=== PATIENT | female | born 1950 | race Caucasian/White ===

== ENCOUNTER → 2019-07-12 | Outpatient (CLI) | payer OTHER, MEDICAID ==
[~2019-07-12] MED LIST: BYSTOLIC20 MG PO; CALCITRIOL0.5 MCG PO; CIPRO500 MG PO; CIPROFLOXACIN500 M1 PO; FLAGYL500 MG PO; LEVOTHYROXIN0.125 M1 PO; LEVSIN0.125 MG PO; LISINOPRIL10 MG PO; MAGNESIUM OXID400 MG PO; MIRALAX17 GM PO; MOVANTIK25 MG PO; OXYCODONE HCL15 MG PO; OXYCONTIN80 M1 PO; PLAVIX 75 MG TA75 M1 PO; SYNTHROID; TUMS PO; VENTOLIN HFA 1818 GM INH; XANAX 0.5 MG0.5 MG PO; ZOCOR20 MG PO; ZOFRAN4 MG PO
== END ==
LOC: M.ULTRA 07-11 11:30 → M.RAD 11:19 → M.ULTRA 11:19
DX: Z12.31 Encounter for screening mammogram for malignant neoplasm of breast (principal); I65.23 Occlusion and stenosis of bilateral carotid arteries

== ENCOUNTER → 2019-07-24 | Outpatient (CLI) | payer OTHER | LOC: M.CT 09:12 | DX: Z13.6 Encounter for screening for cardiovascular disorders (principal) ==

== ENCOUNTER → 2019-07-24 | Outpatient (CLI) | payer OTHER, MEDICAID | LOC: M.ULTRA 07-17 14:09 → M.RAD 09:00 → M.ULTRA 09:30 | DX: M85.88 Other specified disorders of bone density and structure, other site (principal); I25.10 Atherosclerotic heart disease of native coronary artery without angina pectoris; J44.9 Chronic obstructive pulmonary disease, unspecified ==

== ENCOUNTER 2021-06-03 13:07 | Emergency (ER) | payer MEDICARE, MEDICAID ==
[~2021-06-03] VITALS: Ht 157.5 cm; Wt 65.8 kg
[2021-06-03 13:11] VITALS: BP 117/56
== END 2021-06-03 13:34 | disposition home or self-care (01) ==
LOC: M.ERS 13:07
DX: J44.1 Chronic obstructive pulmonary disease with (acute) exacerbation (principal); Z79.899 Other long term (current) drug therapy; Z90.89 Acquired absence of other organs; Z98.890 Other specified postprocedural states